=== PATIENT | female | born 1995 | race Caucasian/White ===

== ENCOUNTER → 2018-11-23 | Outpatient (CLI) | payer BC ==
--- NOTE | 2018-11-23 15:15 | NM ---
EXAMINATION TYPE: NM hepatobiliary w EF DATE OF EXAM: 11/23/2018 COMPARISON: NONE INDICATION: Right upper quadrant pain TECHNIQUE: After the intravenous administration of 4.78 mCi Tc 99m Mebrofenin hepatobiliary scintigra phy is performed. Images were obtained immediately post injection. FINDINGS: There is prompt uptake and excretion of radiotracer by the liver. Extrahepatic ducts are identified at 10 minutes. The gallbladder is visualized within 12 minutes. Small bowel activity is noted within 58 minutes. At one hour 8 ounces of oral ensure plus is given to mimic CCK and gallbladder ejection fraction is c alculated at 86 %, which is which is elevated. (Normal >35% and <80%.). IMPRESSION: 1. Correlate for biliary hyperkinesia.
== END | disposition home or self-care (01) ==
LOC: RADNMMAIN 12:56
PROVIDERS: ATTEND Family Medicine
DX: R10.11 Right upper quadrant pain (principal); R63.4 Abnormal weight loss
CPT/HCPCS: 78226; A9537